=== PATIENT | male | born 1985 | race Caucasian/White ===

== ENCOUNTER 2017-11-25 13:09 | Inpatient (IN) | payer MEDICAID ==
[~2017-11-25] VITALS: Ht 185.4 cm; Wt 93.0 kg
[2017-11-25 13:55] VITALS: BP 128/83
[2017-11-25 14:10] VITALS: BP 128/83
[2017-11-25 14:34] LABS: BILIRUBIN NEGATIVE (NEGATIVE); BLOOD NEGATIVE (NEGATIVE); CLARITY SL CLOUDY (CLEAR); COLOR YELLOW (YELLOW); GLUCOSE NEGATIVE (NEGATIVE); KETONE NEGATIVE (NEGATIVE); LEUKO ESTERASE NEGATIVE (NEGATIVE); NITRITE NEGATIVE (NEGATIVE); PH 6.5 (5.0-9.0); SPECIFIC GRAVITY 1.015 (1.005-1.030); UROBILINOGEN 0.2 E.U./dl (0.2-1.0)
[2017-11-25 14:47] LABS: URINE BARBITURATES < 200 (200ng/ml); URINE CANNABINOIDS (THC) > 50 (50ng/ml); URINE METHADONE < 300 (300ng/ml); URINE OPIATES > 300 (300ng/ml)
[2017-11-25 14:51] LABS: URINE AMPHETAMINES < 1000 (1000ng/ml); URINE BENZODIAZEPINES < 200 (200ng/ml); URINE COCAINE < 300 (300ng/ml); URINE PHENCYCLIDINE < 25 (25ng/ml)
[2017-11-25 14:55] LABS: BACTERIA TRACE; EPITHELIAL CELLS 0-2; MUCOUS 1+; WBC 0-2 wbc/hpf (0-5)
[2017-11-25 15:05] LABS: BASO % 0.3 % (0.0-1.0); EOS # 0.1 10*3/uL (0.0-0.4); EOS % 1.9 % (1.0-4.0); HEMATOCRIT 45.3 % (42.0-52.0); HEMOGLOBIN 15.1 g/dl (14.0-18.0); LYMPH # 1.8 10*3/uL (1.3-4.4); LYMPH % 24.6 % (27.0-41.0); MEAN CELL VOLUME 90.4 fl (80.0-94.0); MEAN CORPUSCULAR HGB 30.1 pg (27.0-31.0); MEAN CORPUSCULAR HGB CONC 33.3 g/dl (33.0-37.0); MEAN PLATELET VOLUME 10.3 fl (9.6-12.3); MONO # 0.7 10*3/uL (0.1-1.0); MONO % 9.2 % (3.0-9.0); NEUT # 4.7 10*3/uL (2.3-7.9); NEUT % 63.6 % (47.0-73.0); PLATELET COUNT AUTOMATED 295 10*3/uL (130-400); RED BLOOD COUNT 5.01 10*6/uL (4.50-5.90); RED CELL DISTRI WIDTH 13.4 % (0-14.5); WHITE BLOOD COUNT 7.4 10*3/uL (4.8-10.8)
[2017-11-25 15:22] LABS: ALBUMIN 3.2 gm/dl (3.1-4.5); ALKALINE PHOSPHATASE 56 U/L (45-117); BUN 13 mg/dl (7-24); CHLORIDE 107 mmol/L (98-107); CREATININE 0.81 mg/dL (0.70-1.30); LIPASE 185 U/L (73-393); SGOT/AST 70 IU/L (3-35); SGPT/ALT 111 U/L (12-78); SODIUM 140 mmol/L (136-145); TOTAL PROTEIN 6.8 gm/dL (6.4-8.2)
[2017-11-25 15:24] LABS: ETHYL ALCOHOL < 3.0 mg/dl (<3)
[2017-11-25 16:00] VITALS: BP 140/80
[2017-11-25 20:00] VITALS: BP 128/61
[2017-11-26] VITALS: BP 126/66
[2017-11-26 08:00] VITALS: BP 115/62
[2017-11-26 16:00] VITALS: BP 136/100
[2017-11-26 20:00] VITALS: BP 121/73
[2017-11-27] VITALS: BP 129/65
[2017-11-27 05:08] LABS: HEPATITIS B SURFACE AG Negative (Negative)
[2017-11-27 07:05] LABS: HIV 1+2 AB + HIV1 P24 AG Non Reactive (Non Reactive)
[2017-11-27 07:23] LABS: HEPATITIS C VIRUS ANTIBODY >11.0 s/co (0.0-0.9)
[2017-11-27 08:00] VITALS: BP 115/63
[2017-11-27 16:00] VITALS: BP 128/77
[2017-11-27 19:52] VITALS: BP 123/66
[2017-11-28] VITALS: BP 129/70
[2017-11-28 08:00] VITALS: BP 111/70
[2017-11-28] MEDS ORDERED: ATARAX,VISTARIL50 MG PO (11:05)
[2017-11-28] MEDS ORDERED: TRAZODONE50 MG PO (11:05)
[2017-11-28] MEDS ORDERED: METHOCARBAMOL750 M1 PO (11:05)
== END 2017-11-28 11:30 | disposition home or self-care (01) | DRG 897 ==
LOC: 5E 13:09
PROVIDERS: Registered Nurse; Student in an Organized Health Care Education/Training Program
DX: F11.23 Opioid dependence with withdrawal (principal); B19.20 Unspecified viral hepatitis C without hepatic coma; F12.90 Cannabis use, unspecified, uncomplicated; F17.210 Nicotine dependence, cigarettes, uncomplicated; Z80.6 Family history of leukemia; Z71.6 Tobacco abuse counseling

== ENCOUNTER 2022-09-26 14:17 | Emergency (ER) | payer OTHER ==
[~2022-09-26] VITALS: Ht 185.4 cm; Wt 93.0 kg
[~2022-09-26 14:17] MED LIST: ATARAX,VISTARIL50 MG PO; METHOCARBAMOL750 M1 PO; TRAZODONE50 MG PO
== END 2022-09-26 16:55 | disposition left against medical advice (07) ==
LOC: ED 14:17
DX: Z53.21 Procedure and treatment not carried out due to patient leaving prior to being seen by health care provider (principal)